=== PATIENT | male | born 1990 | race Caucasian/White ===

== ENCOUNTER 2023-02-12 13:24 | Day surgery (SDC) | payer BC ==
[2023-02-08 14:42] VITALS: BMI 31.0
[~2023-02-12 13:24] MED LIST: LACTATED RINGERS 1,000 ML IV SCH; LIDOCAINE 1% (10MG/ML) FOR IV START INTRADERMA PRN
[2023-02-12 14:01] VITALS: TEMP 97.6
[2023-02-12] MEDS ORDERED: PROPOFOL 10 MG/ML 20 ML VIAL IV ONE (14:14)
[2023-02-12] MEDS ORDERED: LIDOCAINE 1% INJ 10MG/ML (20 ML MDV) ONE (14:14)
[2023-02-12] MEDS ORDERED: GLYCOPYRROLATE 0.2 MG/ML 2 ML VIAL ONE (14:14)
--- NOTE | 2023-02-12 14:16 | P.GSHP ---
History of Present Illness H&P Date: 02/12/23 Chief Complaint: Screening colonoscopy This is a 32-year-old male presents today for screening colonoscopy. Patient denies any significant GI complaints. Past Medical History Additional Past Medical History / Comment(s): Ulcerative Colitis, Asthma as a child History of Any Multi-Drug Resistant Organisms: None Reported Additional Past Surgical History / Comment(s): Colonoscopy, [place] teeth. Past Anesthesia/Blood Transfusion Reactions: No Reported Reaction Smoking Status: Never smoker - Past Family History Mother Family Medical History: No Reported History Father Family Medical History: Cancer Medications and Allergies Home Medications Medication Instructions Recorded Confirmed Type Losartan [Cozaar] 25 mg PO DAILY 02/08/23 02/08/23 History Allergies Allergy/AdvReac Type Severity Reaction Status Date / Time Penicillins Allergy Rash/Hives Verified 02/12/23 13:46 Surgical - Exam Vital Signs Temp Pulse Resp BP Pulse Ox 97.6 F 66 16 126/71 98 02/12/23 13:54 02/12/23 13:54 02/12/23 13:54 02/12/23 13:54 02/12/23 13:54 - General well developed, well nourished, no distress - Eyes PERRL - ENT normal pinna - Neck no masses - Respiratory normal expansion - Cardiovascular Rhythm: regular - Abdomen Abdomen: soft, non tender Assessment and Plan Assessment: We'll perform screening colonoscopy.
--- NOTE | 2023-02-12 14:29 | P.OP ---
Date of Procedure: 02/12/23 Preoperative Diagnosis: Screening colonoscopy History of ulcerative colitis Postoperative Diagnosis: Colon polyp hepatic flexure Procedure(s) Performed: Colonoscopy Anesthesia: MAC Surgeon: Cal Odonnell Pathology: other (Colon polypHepatic flexure) Condition: stable Disposition: PACU Description of Procedure: The patient's placed on the endoscopy table in the lateral position. He received IV sedation. Digital rectal exam was performed. This revealed no abnormalities. The flexible colonoscope was then placed patient anus and passed throughout the entire colon. Ileocecal valve was visualized. The cecum appeared normal. The right colon appeared normal. At the hepatic flexure there was a polyp seen. This removed with the cold forcep. Scope was then withdrawn the remainder of the transverse colon appeared normal. The sigmoid colon appeared normal. Scope back the rectum this appeared normal. Scope was withdrawn for patient. There is no evidence of any inflammatory changes of the colon suggestive of ulcerative colitis.
[2023-02-12 15:11] VITALS: BP 125/83; PULSE 53; RESP 16
== END 2023-02-12 15:06 | disposition home or self-care (01) ==
LOC: ORWHC2ENDO 13:24
PROVIDERS: ATTEND Surgery
DX: Z12.11 Encounter for screening for malignant neoplasm of colon (principal); K63.5 Polyp of colon; K51.90 Ulcerative colitis, unspecified, without complications; I10 Essential (primary) hypertension; F17.200 Nicotine dependence, unspecified, uncomplicated; J45.909 Unspecified asthma, uncomplicated; Z79.899 Other long term (current) drug therapy; Z88.0 Allergy status to penicillin; Z80.9 Family history of malignant neoplasm, unspecified
CPT/HCPCS: 88305; 45380; J2001; J2704